=== PATIENT | female | born 1960 | race Caucasian/White ===

== ENCOUNTER 2017-05-18 14:27 | Emergency (ER) | payer OTHER ==
[~2017-05-18] VITALS: Ht 157.5 cm; Wt 85.3 kg
[2017-05-18] MEDS ORDERED: LIDOCAINE 2%/EPI 1:100,000 20 ML VIAL. IJ ONE (15:45)
[2017-05-18] MEDS ORDERED: LORazepam 2 MG/ML VIAL IV ONE (15:45)
[2017-05-18] MEDS ORDERED: CLINDAMYCIN 600MG PREMIX 50 ML IV ONE (15:45)
--- NOTE | 2017-05-18 15:54 | PHYS DOC ---
General Chief Complaint: ABSCESS Stated Complaint: SPIDER BITE Time Seen by MD: 14:32 Source: patient, RN/MD Exam Limitations: no limitations Problems: History of Present Illness Initial Comments Patient is a 57-year-old female sent to the emergency department by her primary care doctor for I&D of left buttock abscess. Patient states that she's had a bump on her left buttock since approximately Labor Day. She says she assumed it was an insect bite initially. The past several days swelling has increased and it has become very tender and painful. It is draining pus from the middle of the lesion spontaneously there's been no prior surgical intervention. Although the lesion has been painful the patient doesn't I fever chills sweats or body aches no lethargy or malaise. Patient denies any immunocompromised state and was going to have the abscess drained in the office of Dr. Shi's office however she became very nervous. Dr. Benton thought it would be better for her to have the procedure here in the emergency department with intravenous access/analgesics/anxiolytics if needed. He called to advise me he was sending the patient over and requested that I check a BMP, CBC, and creatine kinase as well as a urinalysis to ensure no rhabdomyolysis was present. ED vitals: 98.3, 88, 20, 120/63, 97% on room air Timing/Duration: getting worse, changing over time Severity: severe Modifying Factors: worse with movement, improves with rest Associated Symptoms: other Allergies: Coded Allergies: Antihistamines - Alkylamine (Verified Allergy, Intermediate, 05/18/17) amitriptyline (Unverified Allergy, Intermediate, 07/07/14) doxycycline (Verified Allergy, Intermediate, 05/18/17) Past Medical History Medical History: no pertinent history Surgical History: noncontributory Social History Smoker: non-smoker Alcohol: none Drugs: none Review of Systems Constitutional: denies chills, denies diaphoresis, denies fever, denies malaise Respiratory: denies cough, denies shortness of breath Cardiovascular: denies chest pain, denies palpitations Gastrointestinal: denies nausea, denies vomiting Genitourinary: denies discharge, denies dysuria, denies frequency Musculoskeletal: see HPI, denies back pain, denies joint pain, denies neck pain Skin: see HPI Psychiatric/Neurological: denies headache, denies numbness, denies paresthesia Physical Exam General Appearance: moderate distress, obese Eyes: bilateral eye normal inspection, bilateral eye PERRL, bilateral eye EOMI Ear, Nose, Throat: hearing grossly normal, normal ENT inspection Neck: non-tender, supple Respiratory: normal breath sounds, no respiratory distress Cardiovascular: normal peripheral pulses, regular rate, rhythm Back: no CVA tenderness, no vertebral tenderness Extremities: other (left buttock: There is a large 5 cm tender and spontaneously draining/scab abscess at the left buttock, no extension towards the midline no drainage from the anus or other evidence of fistula. 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 Analgesia achieved with 4 mL 2% lidocaine with epinephrine. #11 blade utilized to break up the scab and extend at the already draining abscess to a 0.5 cm incision. Curved hemostat was used to break up multiple loculations and copious amounts of foul smelling brown purulent material expressed. Gauze packing was applied to the wound after first irrigating with Betadine followed by 150 mL of saline. Sterile dressing was applied the patient tolerated procedure well no complications. Wound care and prescription medications were discussed at length CV departure instructions. Orders, Labs, Meds Slight leukocytosis noted, otherwise BMP/CK/UA unremarkable. Departure Time of Disposition: 16:37 Disposition: 01 HOME, SELF-CARE Diagnosis: abscess left buttock Condition: IMPROVED Patient Instructions: Abscess, Care After Additional Instructions: Please review the patient education materials given by ED staff. Rest, no strenuous activity. Off work until cleared by Dr. Benton. Cufl-jdo-fubjqyn ibuprofen for baseline discomfort. Warm sits baths 3 times daily. Keep wound covered with sterile dressing until completely healed. Wash the wound twice daily with soap and warm water, blot dry. Allow the wound to air dry at least one hour daily. The wound packing will need to be removed within 48 hours. You may follow-up here at the ED on Monday or with Dr. Benton tomorrow for wound recheck and packing removal. A culture of the abscess drainage was obtained today, results will be available for your doctor in about 3 days. Prescription: Bactrim DS, [place] 7.5 mg quantity 30. Take your prescription medications separately. Taken with food to avoid nausea vomiting and abdominal discomfort. Increase fluid intake and take [id number] stool softeners to avoid opiate-induced constipation. Follow-up with a doctor within 48 hours for a wound check and packing removal. Follow-up with your doctor early next week for culture results and antibiotic change if necessary. Return to ED with new or changing symptoms. MARY MADISON DO May 18, 2017 15:54
[2017-05-18 15:57] LABS: BASO # 0.1 x10^3/uL (0.0-0.2); BASO % 1 % (0-3); EOS # 0.1 x10^3/uL (0.0-0.7); EOS % 1 % (0-3); HEMATOCRIT 38.8 % (36.0-47.0); HEMOGLOBIN 13.3 g/dL (12.0-15.5); LYMPH # 2.3 x10^3/uL (1.0-4.8); LYMPH % 19 % (24-48); MEAN CORPUSCULAR HEMOGLOBIN 29 pg (25-35); MEAN CORPUSCULAR HGB CONC 34 g/dL (31-37); MEAN CORPUSCULAR VOLUME 85 fL (79-100); MONO # 0.7 x10^3/uL (0.0-1.1); MONO % 6 % (0-9); NEUT # 8.8 x10^3uL (1.8-7.7); NEUT % 73 % (31-73); PLATELET COUNT 248 x10^3/uL (140-400); RED BLOOD COUNT 4.56 x10^6/uL (3.50-5.40); RED CELL DISTRIBUTION WIDTH 14.1 % (11.5-14.5); WHITE BLOOD COUNT 11.9 x10^3/uL (4.0-11.0)
[2017-05-18 16:07] LABS: BACTERIA,URINE FEW /HPF (0-FEW); BILIRUBIN,URINE NEG (NEG); CLARITY,URINE HAZY; COLOR,URINE YELLOW; GLUCOSE,URINE NEG (NEG); NITRITE,URINE NEG (NEG); UROBILINOGEN,URINE 0.2 mg/dL (0.2 mg/dL)
[2017-05-18 16:08] LABS: GRANULAR CASTS,URINE OCC /HPF; HYALINE CASTS, URINE OCC /HPF; SQUAMOUS EPITHELIAL CELL,UR FEW /LPF
[2017-05-18 16:13] LABS: CALCIUM 9.1 mg/dL (8.5-10.1); GFR 57.4
[2017-05-18] MEDS ORDERED: SULF1TAB24 PO (16:37)
[2017-05-18] MEDS ORDERED: HYDR-965 PO (16:37)
[2017-05-18 16:45] VITALS: BP 121/61
== END 2017-05-18 17:00 | disposition home or self-care (01) ==
LOC: ER 14:31
DX: L02.31 Cutaneous abscess of buttock (principal); Z88.8 Allergy status to other drugs, medicaments and biological substances; Z88.1 Allergy status to other antibiotic agents
CPT/HCPCS: 10060; 36415; 80048; 81001; 82550; 85025; 87040; 87070; 96365; 96375; 99284; J2060; J3490

== ENCOUNTER → 2018-04-27 | Outpatient (CLI) | payer OTHER ==
[~2018-04-27] MED LIST: 0.9 % SODIUM CHLORIDE 10 ML VIAL ONE; HYDR-965 PO; IOHEXOL 300 MG/ML 50 ML VIAL. ONE; LIDOCAINE 1% PF 30 ML VIAL. ONE; SULF1TAB24 PO; methylPREDNISolone ACETATE 80 MG/ML VIAL. ONE
== END | disposition home or self-care (01) ==
LOC: SURG 13:00
PROVIDERS: ATTEND Anesthesiology Pain Medicine
DX: M47.816 Spondylosis without myelopathy or radiculopathy, lumbar region (principal); J44.9 Chronic obstructive pulmonary disease, unspecified; M19.90 Unspecified osteoarthritis, unspecified site; Z79.899 Other long term (current) drug therapy; Z88.2 Allergy status to sulfonamides; M79.7 Fibromyalgia; Z88.1 Allergy status to other antibiotic agents; Z90.710 Acquired absence of both cervix and uterus; Z98.890 Other specified postprocedural states; F17.200 Nicotine dependence, unspecified, uncomplicated
CPT/HCPCS: 62323; J1040; J2001; Q9967

== ENCOUNTER → 2019-02-01 | Outpatient (CLI) | payer OTHER ==
[~2019-02-01] MED LIST changes: -0.9 % SODIUM CHLORIDE 10 ML VIAL ONE; +HYDR-3166 PO; -HYDR-965 PO; -IOHEXOL 300 MG/ML 50 ML VIAL. ONE; -LIDOCAINE 1% PF 30 ML VIAL. ONE; -methylPREDNISolone ACETATE 80 MG/ML VIAL. ONE
== END | disposition home or self-care (01) ==
LOC: SURG 15:07
PROVIDERS: ATTEND Anesthesiology Pain Medicine
DX: M54.16 Radiculopathy, lumbar region (principal); G89.4 Chronic pain syndrome; J44.9 Chronic obstructive pulmonary disease, unspecified; M19.90 Unspecified osteoarthritis, unspecified site; F17.200 Nicotine dependence, unspecified, uncomplicated; Z85.9 Personal history of malignant neoplasm, unspecified; Z90.710 Acquired absence of both cervix and uterus; Z79.899 Other long term (current) drug therapy
CPT/HCPCS: 99213

== ENCOUNTER → 2020-04-15 | Outpatient (CLI) | payer MEDICAID, OTHER ==
--- NOTE | 2020-04-20 14:47 | RAD ---
EXAM: BILATERAL DIGITAL 3D SCREENING MAMMOGRAPHY. HISTORY: Routine mammographic screening. TECHNIQUE: Bilateral digital 3D and tomographic images were obtained in CC and MLO projections. Computer-aided detection was applied. COMPARISON: 10/19/2015. COMPOSITION: A. The breasts are almost entirely fatty. FINDINGS: There are no suspicious masses, microcalcifications or architectural distortion. The parenchymal pattern is stable. Scattered calcifications are benign. BI-RADS CATEGORY 2: Benign. RECOMMENDATION: 1. Routine screening mammography in one year. If mammography demonstrates dense breast tissue (heterogenously dense or extremely dense, category C or D), which could hide abnormalities, and if other risk factors for breast cancer have been identified, supplemental screening tests that may be suggested by the ordering physician may be of benefit. Dense breast tissue, in and of itself, is a relatively common condition. Therefore, this information is not provided to cause undue concern, but rather to raise awareness and to promote discussion with the referring physician regarding the presence of other risk factors, in addition to dense breast tissue. The results of this mammography examination is provided to the patient and referring physician. The patient should contact their referring physician if any questions or concerns exist regarding this report. PQRS compliance statement - Patient information was entered into a reminder system with a target due date for the next mammogram. "Our facility is accredited by the [employer] Mammography [employer]." Electronically signed by: Carleen Heredia MD (04/20/2020 2:44 PM) [id number]
== END | disposition home or self-care (01) ==
LOC: MAMMO 14:32
PROVIDERS: ATTEND Family Medicine
DX: Z12.31 Encounter for screening mammogram for malignant neoplasm of breast (principal); N64.89 Other specified disorders of breast
CPT/HCPCS: 77067

== ENCOUNTER → 2021-05-19 | Outpatient (CLI) | payer MEDICARE, OTHER ==
--- NOTE | 2021-05-19 12:47 | RAD ---
EXAM: CT CHEST WITHOUT CONTRAST (LDCT LUNG CANCER SCREENING). HISTORY: Lung cancer screening. Cigarette smoking. TECHNIQUE: CT of the chest was performed without intravenous contrast using a low-dose lung screening protocol. Findings analysis is based on ACR Lung-RADS v1.1. *One or more of the following individual ized dose reduction techniques were utilized for this examination: 1. Automated exposure control. 2. Adjustment of the mA and/or kV according to patient size. 3. Use of iterative reconstruction technique. COMPARISON: 10/01/2015. FINDINGS: The heart is normal in size. The aorta is normal in caliber. No pathologically enlarged lym ph node is seen. There is no infiltrate, pleural effusion or pneumothorax. There is lingular and medi al right middle lobe pleural parenchymal scarring. There is no acute finding involving the upper abdo men. There is no acute osseous finding. There are incidental dorsal column stimulator leads overlying the mid thoracic spinal canal. IMPRESSION/RECOMMENDATION: 1. ACR Lung-RADS category: 1. Annual low dose CT lung cancer screening is recommended. 2. No acute thoracic finding. Electronically signed by: Marnie Linda MD (05/19/2021 12:44 PM) [id number]
== END ==
LOC: MAMMO 09:56
PROVIDERS: ATTEND Family Medicine
DX: Z12.2 Encounter for screening for malignant neoplasm of respiratory organs (principal); J98.4 Other disorders of lung; F17.210 Nicotine dependence, cigarettes, uncomplicated
CPT/HCPCS: 71271

== ENCOUNTER → 2021-07-01 | Outpatient (CLI) | payer MEDICARE, OTHER ==
--- NOTE | 2021-07-01 16:42 | RAD ---
History: Routine digital3-D screening mammography PROCEDURE: [Routine 2-D and 3-D CC and MLO views of both breasts are obtained.] The images were als o evaluated with computer-aided detection and the CAD results were analyzed. Previous: Bilateral mammogram from 04/15/2020. FINDINGS: There are scattered fibroglandular densities (density level B).There is a well-defined nodule in the central left breast, mid to posterior depth seen on CC 3-D image 59/79. This perhaps corresponds to t he nodule seen in the upper breast on slice #72/90. There is also a tiny nodule in the subareolar rig ht breast, best seen on CC image 29/82 and MLO image 50/92. There are no suspicious microcalcificati ons or areas of architectural distortion. IMPRESSION: Nodules in both breasts as outlined above. Further evaluation with bilateral breast ultrasound may be obtained. BI-RADS Category 0: Incomplete: Need additional imaging evaluation. A sales representative electric service from the imaging department will contact the patient to schedule for followup. Mammography is the most sensitive method for finding small breast cancers, but it does not detect the m all and is not a substitute for careful clinical examination. A negative mammogram does not negate a clinically suspicious finding and should not result in delay in biopsying a clinically suspicious abnormality. "Our facility is accredited by the [employer] Mammography Program." A mammogram does not have 100% sensitivity and therefore a negative imaging study should not delay fu rther work up of a suspicious abnormality. Electronically signed by: Debbie Pichardo MD (07/01/2021 4:40 PM) [id number]
[2021-07-02 19:57] LABS: FREE T4 0.76 ng/dL (0.76-1.46); THYROID STIM HORMONE (TSH) 3.477 uIU/mL (0.358-3.740)
== END ==
LOC: MAMMO 13:57
PROVIDERS: ATTEND Family Medicine
DX: Z12.31 Encounter for screening mammogram for malignant neoplasm of breast (principal); L65.9 Nonscarring hair loss, unspecified
CPT/HCPCS: 77063; 77067; 84439; 84443

== ENCOUNTER → 2021-07-09 | Outpatient (CLI) | payer MEDICARE, OTHER ==
--- NOTE | 2021-07-09 15:32 | RAD ---
EXAM: US BREAST BILAT 07/09/2021 12:48 PM CLINICAL INDICATION: Recalled from screening mammogram for bilateral breast nodules. COMPARISON: Mammogram 07/01/2021 TECHNIQUE: Grayscale and color Doppler ultrasound images of the retroareolar right breast and of the left breast at 10-1 o'clock and 5-7 o'clock. FINDINGS: In the right breast, there is an ovoid anechoic simple cyst measuring 3 x 3 x 2 mm at the 9:00 retroa reolar region. This corresponds with the abnormality seen on mammogram. In the left breast, there is an incidentally noted tubular branching anechoic cystic structure measur ing 1.0 x 0.4 x 0.4 cm at 12:00 2 cm from the. No definite abnormalities correspond with the 5 mm nod ule in the mid to posterior left breast on mammogram. There are normal-appearing lymph nodes in the right and left axilla. IMPRESSION: 1. Benign 3 mm simple cyst in the retroareolar right breast corresponding with the mammographic abnor mality. 2. Incidentally seen probably benign 1 cm cystic structure in the left breast at 12:00 2 cm from the nipple with a branching appearance. This could be focal dilated ducts or a cluster of cysts but there is no definite solid mass. Additionally there is no definite sonographic correlation for the 5 mm no dule in the mid to posterior left breast. Recommend 6 month follow-up mammogram and ultrasound of the left breast findings to ensure stability. BI-RADS category 3: Probably benign. Electronically signed by: Rosalba Small MD (07/09/2021 3:29 PM) [id number]
== END ==
LOC: US 12:41
PROVIDERS: ATTEND Family Medicine
DX: N60.01 Solitary cyst of right breast (principal)
CPT/HCPCS: 76641-50